=== PATIENT | female | born 1945 | race Caucasian/White ===

== ENCOUNTER → 2018-08-05 14:55 | Outpatient (CLI) | payer MEDICARE, OTHER ==
[2015-12-07 16:29] VITALS: BMI 24.7
[~2018-08-05 14:55] MED LIST: ARMOUR THYROID180 MG PO; CO Q-10200 MG PO; GARLIC1 CAP PO; GLUCOPHAGE500 MG PO; HYDROCODONE-APA1 TAB PO; HYZAAR 100-25 T1 TAB PO; KRILL OIL 1,001 EAC1 PO; LANOXIN250 MCG PO; LOPRESSOR25 MG PO; MAGNESIUM COMPLEX PO; MULTIPLE VITAMI1 TA1 PO; OXYCODONE HCL10 MG PO; POTASSIUM99 M1 PO; RESVERATROL PO; TUMERIC PO; ULTRAM50 MG PO; VITAMIN C1000 MG PO; VITAMIN D5000 UNIT PO; VITAMIN E200 UNI1 PO; ZOFRAN ODT4 MG/UDTAB PO; [UNRECOGNIZED DRUG - MIXTURE] PO; [UNRECOGNIZED DRUG - OTHER]; [UNRECOGNIZED DRUG - OTHER]
[2018-08-05 15:39] LABS: INR 2.32 (0.85-1.17); PROTIME 24.9 SECONDS (11.6-15.0)
== END | disposition home or self-care (01) ==
LOC: D.LABREF 14:55
PROVIDERS: Family Medicine
DX: I48.91 Unspecified atrial fibrillation (principal); Z51.81 Encounter for therapeutic drug level monitoring; Z79.01 Long term (current) use of anticoagulants

== ENCOUNTER → 2020-07-30 13:11 | Outpatient (CLI) | payer MEDICARE, OTHER ==
[2015-12-07 16:29] VITALS: BMI 24.7
== END | disposition home or self-care (01) ==
LOC: D.HCCECHO 13:11
PROVIDERS: ATTEND Internal Medicine Cardiovascular Disease
DX: I48.91 Unspecified atrial fibrillation (principal)